=== PATIENT | female | born 1985 | race Caucasian/White ===

== ENCOUNTER 2022-02-01 10:22 | Outpatient (CLI) | payer OTHER, SELFPAY ==
[2022-02-06 00:40] LABS: Sex Hormone Binding Globulin 55 nmol/L (25-122); Testosterone, Free LC-MS/MS 1.5 pg/mL (1.3-9.2); Testosterone, LC-MS/MS 12 ng/dL (9-55)
== END 2022-02-01 10:23 | disposition home or self-care (01) ==
PROVIDERS: PCP Family Medicine; Visit Provider Obstetrics & Gynecology
DX: N93.9 Abnormal uterine and vaginal bleeding, unspecified (principal); R10.2 Pelvic and perineal pain; N92.1 Excessive and frequent menstruation with irregular cycle; Z12.4 Encounter for screening for malignant neoplasm of cervix
CPT/HCPCS: 83498; 84270; 84402; 84403; 87086

== ENCOUNTER 2022-02-08 14:46 | Outpatient (CLI) | payer OTHER, SELFPAY ==
--- NOTE | 2022-02-08 15:00 | CRLHL7_ITS ---
For Patients: As a result of the Century Cures Act, medical imaging exams and procedure reports are released immediately into your electronic medical record. You may view this report before your referring provider. If you have questions, please contact your health care provider. CLINICAL HISTORY: Pelvic pain TECHNIQUE: 2D vera scale ultrasound. In addition color Doppler and spectral Doppler analysis was performed of the pelvis using a transabdominal and transvaginal approach. FINDINGS: The myometrium has a normal uniform echotexture. The uterus measures 8.2 x 3.8 x 4.4 cm. The endometrial lining measures 3 mm in thickness. The right ovary measures 3.1 x 1.9 x 1.7 cm in size and the right ovary measures 2.9 x 1.8 x 2.0 cm. The ovaries demonstrate normal arterial and venous blood flow on color Doppler and spectral Doppler analysis. There are no suspicious fluid collections within the cul-de-sac. IMPRESSION: Normal exam. No evidence of torsion. Dictated by Ta Davis MD @ 02/08/2022 3:35:19 PM (Electronically Signed)
== END 2022-02-08 14:47 | disposition home or self-care (01) ==
LOC: US 14:46
PROVIDERS: PCP Family Medicine; Visit Provider Obstetrics & Gynecology
DX: R10.2 Pelvic and perineal pain (principal)
CPT/HCPCS: 76830; 76856; 93976

== ENCOUNTER 2022-04-04 16:45 | Outpatient (RCR) | payer BC, SELFPAY | END 2022-07-02 10:16 | disposition home or self-care (01) | PROVIDERS: PCP Family Medicine; Visit Provider Family Medicine | DX: M54.50 Low back pain, unspecified (principal); Z51.89 Encounter for other specified aftercare | CPT/HCPCS: 97110; 97161 ==

== ENCOUNTER 2022-06-07 09:56 | Outpatient (CLI) | payer BC, SELFPAY | END 2022-06-07 09:57 | disposition home or self-care (01) | PROVIDERS: PCP Family Medicine; Visit Provider Obstetrics & Gynecology | DX: N91.5 Oligomenorrhea, unspecified (principal); N97.9 Female infertility, unspecified | CPT/HCPCS: 84270; 84402; 84403; 84443 ==

== ENCOUNTER 2022-06-21 10:53 | Outpatient (CLI) | payer BC, SELFPAY ==
--- NOTE | 2022-06-21 11:15 | CRLHL7_ITS ---
For Patients: As a result of the Century Cures Act, medical imaging exams and procedure reports are released immediately into your electronic medical record. You may view this report before your referring provider. If you have questions, please contact your health care provider. Indication: Infertility Technique: Hysterosalpingogram. Fluoroscopic time 24 seconds. IMPRESSION: Normal patency of the fallopian tubes with normal spillage into the peritoneum. Normal endometrial canal. Dictated by Ta Davis MD @ 06/24/2022 10:46:50 AM (Electronically Signed)
--- NOTE | 2022-06-21 15:39 | W.PM.GYNPROC ---
Procedure Note Date Seen: 06/21/22 Procedure Details: PREPROCEDURE DIAGNOSIS: Secondary infertility. POSTPROCEDURE DIAGNOSIS: 1. Secondary infertility. 2. Patent fallopian tubes bilaterally. NAME OF PROCEDURE: Hysterosalpingogram. ANESTHESIA: None. COMPLICATIONS: None. PROCEDURE: After obtaining verbal consent, the patient was placed in the dorsal lithotomy position on the x-ray table. An open-sided bivalve speculum was introduced into the vagina and the cervix easily visualized. The cervix and vagina were then prepped with Betadine. A balloon tipped double-lumen catheter was then gently inserted through the cervical opening into the uterine cavity to the level of the fundus. The balloon was insufflated with 1.5 mL of air. The speculum was removed. The patient was repositioned in the supine position, covered, and the radiologist was called to the room. A hysterosalpingogram was then performed. A total of approximately 3 cc of Optiray 300 water soluble contrast dye was injected through the double-lumen catheter under moderate pressure. There was immediate fill of the uterine cavity to the cornua and immediate fill of both fallopian tubes and free spillage of dye on both sides. The contour of the endometrial cavity appeared normal. The balloon was deflated. The catheter was removed. The patient tolerated the procedure well, though she did have moderate cramping discomfort during and just after the procedure. She was discharged to home in stable condition and to follow up as [facility].
== END 2022-06-21 10:54 | disposition home or self-care (01) ==
LOC: RAD 10:53
PROVIDERS: PCP Family Medicine; Visit Provider Obstetrics & Gynecology
DX: N97.9 Female infertility, unspecified (principal)
CPT/HCPCS: 58340; 74740; A4649; Q9967

== ENCOUNTER 2023-11-07 11:42 | Emergency (ER) | payer BC, SELFPAY ==
[2023-11-07 12:16] VITALS: BP 121/73; PULSE 89; RESP 16; TEMP 36.6; O2SAT 99; BMI 23.4
[2023-11-07 13:26] LABS: Basophils Absolute Auto 0.02 K/uL (0.00-0.30); Basophils Percent Auto 0.3 % (0.0-3.0); Eosinophils Absolute Auto 0.03 K/uL (0.00-0.50); Eosinophils Percent Auto 0.4 % (0.0-7.0); Hematocrit 39.1 % (33.0-51.0); Hemoglobin* 13.9 gm/dL (12.0-16.0); Immature Granulocytes Abs Auto 0.01 K/uL (0.00-0.30); Immature Granulocytes Pct Auto 0.1 %; Lymphocytes Absolute Auto 2.25 K/uL (0.90-2.90); Lymphocytes Percent Auto 29.2 % (20-44); Mean Corpuscular HGB Conc 36 gm/dL (32-36); Mean Corpuscular Hemoglobin 32 pg (26-34); Mean Corpuscular Volume 90 fL (80-100); Monocytes Percent Auto 4.7 % (0.0-11.0); Neutrophils Absolute Auto 5.03 K/uL (1.7-7.0); Neutrophils Percent Auto 65.3 % (42.0-72.0); Platelet Count* 253 K/uL (140-440); RDW Coefficient of Variation % 11.3 % (11.5-15.5); Red Blood Count 4.34 m/uL (4.00-5.20)
[2023-11-07 13:28] LABS: Slide Review Reflex No
[2023-11-07 13:33] LABS: Chloride* 104 mmol/L (96-114); Sodium* 138 mmol/L (135-149)
[2023-11-07 13:36] LABS: Anion Gap 9 mEq/L (7-15); Carbon Dioxide* 25 mmol/L (20-32); Creatinine* 0.5 mg/dL (0.5-1.5); Est. Creatinine Clearance* 110.65; Estimated Glomerular Filt Rate 124 ml/min
[2023-11-07 13:37] LABS: Blood Urea Nitrogen* 11 mg/dL (5-24); Calcium* 9.2 mg/dL (8.4-10.6); Glucose* 84 mg/dL (60-115)
--- NOTE | 2023-11-07 14:10 | ED.GENADULT ---
HPI - General Adult General Date Seen: 11/07/23 Chief complaint: Chest Pain Stated complaint: left jaw/shoulder pain Time Seen by Provider: 11/07/23 12:26 Source: patient Mode of arrival: ambulatory Limitations: no limitations History of Present Illness HPI narrative: Patient is a 38-year-old female who states she was in the waiting room for a dermatology appointment she sun and knee had nausea and sharp radiating pain down the left side of her neck into her shoulder. She states the symptoms lasted about 20 minutes and then fully resolved. She states she feels symptom free at this time. She has never had symptoms like this before. Had no associated chest pain or shortness of breath. No family history of heart disease or sudden at an early age. Stage also states 2 days ago as she had an episode where she woke up from sleep in her left hand and distal forearm felt numb with a tingling sensation. She states her hand felt tight. She currently takes clindamycin and Related Data Home Medications ?Medication ?Instructions ?Recorded ?Confirmed clindamycin phosphate 1 % lotion topical QDAY 06/07/22 06/07/22 multivitamin (Daily Multi-Vitamin 1 tab PO QDAY 06/07/22 06/07/22 tablet) sulfacetamide sodium-sulfur 8 %-4 topical QDAY 06/07/22 06/07/22 % topical suspension Previous Rx's ?Medication ?Instructions ?Recorded pentosan polysulfate sodium 100 mg 100 mg PO TID #90 caps 06/07/22 capsule (Elmiron) Allergies Allergy/AdvReac Type Severity Reaction Status Date / Time lactose AdvReac Mild Verified 06/07/22 09:18 [facility] Medical History Acne vulgaris ?L70.0 - Acne vulgaris (ICD-10) Depression with anxiety ?F41.8 - Other specified anxiety disorders (ICD-10) Graves disease ?E05.00 - Thyrotoxicosis with diffuse goiter without thyrotoxic crisis or storm (ICD-10) Interstitial cystitis (2010) ?N30.10 - Interstitial cystitis (chronic) without hematuria (ICD-10) Irritable bowel syndrome (2016) ?K58.9 - Irritable bowel syndrome without diarrhea (ICD-10) Migraine with aura ?G43.109 - Migraine with aura, not intractable, without status migrainosus (ICD-10) Polycystic ovarian syndrome ?E28.2 - Polycystic ovarian syndrome (ICD-10) Situational depression ?F43.21 - Adjustment disorder with depressed mood (ICD-10) Surgical History S/P tonsillectomy ?Z90.89 - Acquired absence of other organs (ICD-10) Status post delivery ?Z98.891 - History of uterine scar from previous surgery (ICD-10) Status post laparoscopy ?Z98.890 - Other specified postprocedural states (ICD-10) Family History (Updated 02/01/22 @ 12:42 by Erin Caruso MD) Paternal Grandfather Aortic dissection Father Depression ADHD Sister Depression ADHD Kidney stones Aunt Graves disease Mother Kidney stones Social History (Updated 06/07/22 @ 09:06 by Erin Caruso MD) Narrative: She works as an property staff accountant She has a bachelor's degree 2 kids 8 and 11 She does not smoke, drink alcohol, or use recreational drugs Does not exercise Smoking Status: Never smoker Do you use any of these nicotine containing products: None How often do you have a drink containing alcohol: never How often do you have six or more drinks on one occasion: Never AUDIT-C Alcohol total score: 0 Non-prescribed substance use: denies use Little interest or pleasure in doing things: not at all Feeling down, depressed, or hopeless: more than half the days Exam Const: Vital Signs, click to edit/add: Vital Signs - 24 hr 11/07/23 12:16 Temperature 98 F Pulse Rate [Pulse Oximeter] 89 Respiratory Rate 16 Blood Pressure [Ri ght Upper Arm] 121/73 Pulse Oximetry 99 Oxygen Delivery Me thod Room Air Course Vital Signs Vital signs: Initial Vital Signs Temperature 98 F 11/07/23 12:16 Temperature Source Temporal Artery Scan 11/07/23 12:16 Pulse Rate 89 11/07/23 12:16 Respiratory Rate 16 11/07/23 12:16 Blood Pressure 121/73 11/07/23 12:16 Blood Pressure Mean 89 11/07/23 12:16 Pulse Oximetry 99 11/07/23 12:16 Oxygen Delivery Method Room Air 11/07/23 12:16 Vital Signs Temperature 98 F 11/07/23 12:16 Pulse Rate 89 11/07/23 12:16 Respiratory Rate 16 11/07/23 12:16 Blood Pressure 121/73 11/07/23 12:16 Pulse Oximetry 99 11/07/23 12:16 Oxygen Delivery Method Room Air 11/07/23 12:16 Temperature 98 F 11/07/23 12:16 Pulse Rate 89 11/07/23 12:16 Respiratory Rate 16 11/07/23 12:16 Blood Pressure 121/73 11/07/23 12:16 Pulse Oximetry 99 11/07/23 12:16 Oxygen Delivery Method Room Air 11/07/23 12:16 Medical Decision Making MDM Narrative Medical decision making narrative: Patient is a 38-year-old female presenting to emergency department for a pain to her left neck and shoulder that started suddenly and quickly resolved. She was concerned could be cardiac in nature. She has no cardiac risk factors at this time. Seems like could been muscle spasm I will do CBC, CMP, COVID/flu/RSV and EKG and troponin. Lab work all returned showing no concerning abnormalities. No signs of infection at this time. EKG shows no concerning abnormalities and troponin shows no concerning abnormalities. A repeat troponin after 2 hours and still within normal limits. She has been asymptomatic so ordered time in the emergency department. I am not sure what causes symptoms and mild disc been a muscle spasm but I will discharge her at this time. She is agreeable to this plan. Lab Data Labs: Lab Results 11/07/23 11/07/23 11/07/23 Range/Units 12:49 13:10 13:33 WBC 7.70 (4.50-11.00) K/uL RBC 4.34 (4.00-5.20) m/uL Hgb 13.9 (12.0-16.0) gm/dL Hct 39.1 (33.0-51.0) % MCV 90 (80-100) fL MCH 32 (26-34) pg MCHC 36 (32-36) gm/dL RDW Coeff of Jeronimo 11.3 L (11.5-15.5) % Plt Count 253 (140-440) K/uL Neut % (Auto) 65.3 (42.0-72.0) % Lymph % (Auto) 29.2 (20-44) % [place]ville % (Auto) 4.7 (0.0-11.0) % Eos % (Auto) 0.4 (0.0-7.0) % Baso % (Auto) 0.3 (0.0-3.0) % Neut # (Auto) 5.03 (1.7-7.0) K/uL Lymph # (Auto) 2.25 (0.90-2.90) K/uL [place] # (Auto) 0.40 (0.00-0.90) K/UL Eos # (Auto) 0.03 (0.00-0.50) K/uL Baso # (Auto) 0.02 (0.00-0.30) K/uL Abs Immat Gran (auto) 0.01 (0.00-0.30) K/uL Imm/Tot Granulo (auto) 0.1 % Sodium 138 (135-149) mmol/L Potassium 4.0 (3.6-5.1) mmol/L Chloride 104 (96-114) mmol/L Carbon Dioxide 25 (20-32) mmol/L Anion Gap 9 (7-15) mEq/L BUN 11 (5-24) mg/dL Creatinine 0.5 (0.5-1.5) mg/dL Estimated Creat Clear 110.65 Estimated GFR 124 ml/min Glucose 84 (60-115) mg/dL Calcium 9.2 (8.4-10.6) mg/dL SARS-CoV-2 (PCR) Negative SARS-CoV-2 (Negative) Influenza Type A (PCR) Negative PCR FLU A (Negative) Influenza Type B (PCR) Negative PCR FLU B (Negative) RSV (PCR) Negative PCR RSV (Negative) POC Troponin I 0.00 L (0.01-0.04) ng/ml 11/07/23 Range/Units 14:43 WBC (4.50-11.00) K/uL RBC (4.00-5.20) m/uL Hgb (12.0-16.0) gm/dL Hct (33.0-51.0) % MCV (80-100) fL MCH (26-34) pg MCHC (32-36) gm/dL RDW Coeff of Jeronimo (11.5-15.5) % Plt Count (140-440) K/uL Neut % (Auto) (42.0-72.0) % Lymph % (Auto) (20-44) % [place] % (Auto) (0.0-11.0) % Eos % (Auto) (0.0-7.0) % Baso % (Auto) (0.0-3.0) % Neut # (Auto) (1.7-7.0) K/uL Lymph # (Auto) (0.90-2.90) K/uL [place] # (Auto) (0.00-0.90) K/UL Eos # (Auto) (0.00-0.50) K/uL Baso # (Auto) (0.00-0.30) K/uL Abs Immat Gran (auto) (0.00-0.30) K/uL Imm/Tot Granulo (auto) % Sodium (135-149) mmol/L Potassium (3.6-5.1) mmol/L Chloride (96-114) mmol/L Carbon Dioxide (20-32) mmol/L Anion Gap (7-15) mEq/L BUN (5-24) mg/dL Creatinine (0.5-1.5) mg/dL Estimated Creat Clear Estimated GFR ml/min Glucose (60-115) mg/dL Calcium (8.4-10.6) mg/dL SARS-CoV-2 (PCR) (Negative) Influenza Type A (PCR) (Negative) Influenza Type B (PCR) (Negative) RSV (PCR) (Negative) POC Troponin I 0.00 L (0.01-0.04) ng/ml ECG Data Attestation: I personally reviewed and interpreted this ECG as follows: Prior ECG tracings: not available for review Interpretation: Normal sinus rhythm with a rate of 66 beats per minute, normal intervals, normal axis, no ST or T-wave abnormalities Discharge Plan Discharge Clinical Impression: Muscle spasms of neck Patient Disposition: Home, Self-Care Condition: Stable Instructions: Muscle Spasm (ED) Additional Instructions: I cannot say exactly what the symptoms were from but it sounds like the could have been a muscle spasm. At this time I not see any cardiac abnormalities in this symptoms are unlikely to be related to your heart. Return to emergency department for new or worsening symptoms. Prescriptions: No Action clindamycin phosphate 1 % lotion topical QDAY sulfacetamide sodium-sulfur 8-4 % suspension topical QDAY multivitamin [Daily Multi-Vitamin] Tablet 1 tab PO QDAY Elmiron 100 mg capsule 100 mg PO TID Qty: 90 4RF Follow Up/Referrals: Provider,Not a Local [Primary Care Provider] - Stand Alone Forms: [employer] Info Instructions
[2023-11-07 14:17] LABS: PCR FLU A Negative PCR FLU A (Negative); PCR FLU B Negative PCR FLU B (Negative); PCR RSV Negative PCR RSV (Negative); SARS PCR* Negative SARS-CoV-2 (Negative)
== END 2023-11-07 15:32 | disposition home or self-care (01) ==
PROVIDERS: Emergency Provider Student in an Organized Health Care Education/Training Program
DX: M54.2 Cervicalgia (principal); M62.838 Other muscle spasm
CPT/HCPCS: 36415; 80048; 84484; 85025; 87631; 99282; 99283